=== PATIENT | male | born 2000 ===

== ENCOUNTER 2024-03-16 08:59 | Outpatient (AMB) | payer OTHER, SELFPAY ==
--- NOTE | 2024-03-16 09:10 | MHC.OFFWIV ---
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 Intake Note: Pt is a/o x 3 no sob/debbie noted. 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 Pt has less than dime sized puncture wound to posterior chin. Pt denies any pain/disc. Small amount of blood noted. Pt is putting pressure on the area. Color pink warm and dry. Speaks in full sentences. Josefina Hernnadez RN. Allergies amoxicillin Adverse Reaction (Mild, Verified 03/16/24 11:17) Rash [facility] Social History Patient Tobacco Use Status: Never used Tobacco Physical Exam Vital Signs: Last Vital Signs Pulse 93 03/16/24 09:25 BP 116/70 03/16/24 09:25 Pulse Ox 98 03/16/24 09:54 Oxygen Delivery Method Room Air 03/16/24 09:25 BMI result Body Mass Index 23.6 Office Procedures Laceration Repair Procedure Location: chin EMLA: 2% Lidocaine Text: After discussion of risk and benefits, verbal informed consent was obtained. The area was cleaned, prepped, and draped using sterile technique. The wound was irrigated using saline and betadine. Wound edges were approximated and closed using 5.0 monosof and 3 interrupted sutures. Standard wound dressing was applied. Wound care instructions were given. The patient tolerated the procedure well. The patient was instructed to return for increased redness or red streaking, pain, swelling, pus, fevers, chills, or any other signs or symptoms of infection or worsening. Patient was instructed to return for suture removal in 7-10 days. Assessment & Plan Assessment & Plan Medications: New cefuroxime axetil 500 mg PO BID 10 tabs 0RF 5 days Coding
--- NOTE | 2024-03-16 09:20 | MHC.OFFWIV ---
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 Intake Note: Patient here for laceration under chin while at work. 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 HPI Details This note is constructed using voice recognition software. While every effort has been made to ensure accuracy, forming department supervisor errors may have been included. The patient is a 23 year old male who presents to the clinic today with laceration to his chin occurring this morning at work. He had a high pressure object discharge and appropriately coming back striking him in the chin. He denies dyspnea, jaw pain, headache, dizziness. He does report that he gets lightheaded when he gets lab draws, so requested to have his mother present. [facility] Social History Patient Tobacco Use Status: Never used Tobacco Review of Systems Const All systems reviewed & are unremarkable except as noted in HPI and below Physical Exam Vital Signs: Last Vital Signs Pulse 93 03/16/24 09:25 BP 116/70 03/16/24 09:25 Pulse Ox 98 03/16/24 09:54 Oxygen Delivery Method Room Air 03/16/24 09:25 BMI result Body Mass Index 23.6 Const General: cooperative, healthy appearing, comfortable, no acute distress and alert Orientation/consciousness: patient oriented x3 Limitations: no limitations HEENT Head: Yes normal to inspection and Yes normocephalic General nose exam: Normal external nose present Face and sinus: Yes normal facial exam and Yes sinuses nontender Mouth: Normal oral and palatal mucosa present and tongue normal Teeth and gingiva: dentition normal Throat: Yes posterior oropharynx normal Eyes General: appearance normal, both eyes and all related structures Neck Neck: Yes normal visual inspection and Yes full ROM Resp Effort & Inspection: normal respiratory effort and able to speak in complete sentences Auscultation: clear to auscultation bilaterally Cardio Jugular venous distension: no JVD Palpation: normal PMI Rate: regular rate Heart sounds: S1 normal heart sound present, S2 normal heart sound present, no click, no gallops, no murmurs and no rubs Skin Other: flap laceration to mid chin with flap pointing forward measuring 1.5cm. General skin exam: no rashes or lesions noted, elasticity normal and turgor normal Neuro General: patient oriented x3 Cranial nerves: Yes CN's II-XII intact bilaterally Psych Appearance: grossly normal Mental Status: mental status grossly normal Speech and movement: Normal speech and movement present Affect: normal affect Office Procedures Laceration Repair Procedure Location: chin EMLA: 2% Lidocaine Text: After discussion of risk and benefits, verbal informed consent was obtained. The area was cleaned, prepped, and draped using sterile technique. The wound was irrigated using saline and betadine. Wound edges were approximated and closed using 5.0 monosof and 3 interrupted sutures. Standard wound dressing was applied. Wound care instructions were given. The patient tolerated the procedure well. The patient was instructed to return for increased redness or red streaking, pain, swelling, pus, fevers, chills, or any other signs or symptoms of infection or worsening. Patient was instructed to return for suture removal in 7-10 days. Assessment & Plan Assessment & Plan (1) Simple laceration of chin: Code(s): S01.81XA - Laceration without foreign body of other part of head, initial encounter Plan: Patient's mother present for procedure. Laceration repaired in office with 3 interrupted sutures, please see procedure above, patient was visibly nervous throughout but tolerated procedure well. No concern for TBI based on nature of injury and examination today. Advised suture removal in 7-10 days. Plan See above for full details and plan. Medications: New cefuroxime axetil 500 mg PO BID 5 days 10 tabs 0RF Coding Level of Care Code Est Pt Level 4 (50264) Diagnoses Simple laceration of chin S01.81XA Time Spent (min) 40
[2024-03-16 09:25] VITALS: BP 116/70; PULSE 93; O2SAT 92; BMI 23.6
[2024-03-16 09:54] VITALS: O2SAT 98
== END 2024-03-16 13:44 | disposition home or self-care (01) ==
PROVIDERS: Visit Provider Registered Nurse
DX: S01.81XA Laceration without foreign body of other part of head, initial encounter (principal); Z04.2 Encounter for examination and observation following work accident

== ENCOUNTER → 2024-03-16 08:59 | Outpatient (BNVA) | payer OTHER, SELFPAY | DX: S01.81XA Laceration without foreign body of other part of head, initial encounter (principal); W20.8XXA Other cause of strike by thrown, projected or falling object, initial encounter; Y93.9 Activity, unspecified; Y92.9 Unspecified place or not applicable; Y99.0 Civilian activity done for income or pay | CPT/HCPCS: 12011; 99212 ==

== ENCOUNTER 2024-03-24 13:22 | Outpatient (AMB) | payer OTHER, SELFPAY ==
--- NOTE | 2024-03-24 14:29 | MHC.OFFWIV ---
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 Patient Tobacco Use Status: Never used Tobacco Allergies amoxicillin Adverse Reaction (Mild, Verified 03/24/24 14:31) Rash Do you need a note to return to daycare/school/sports/work: Yes HPI HPI Comments History of Present Illness Details This is a 23-year-old male who presented to the walk-in clinic for suture removal. Patient had 3 sutures placed to his chin on 03/16/2024. Patient denies any drainage or surrounding erythema. PFSH Social History Patient Tobacco Use Status: Never used Tobacco Review of Systems Const All systems reviewed & are unremarkable except as noted in HPI and below Reports no additional complaints Eyes Reports no additional complaints ENT Reports no additional complaints Card Reports no additional complaints Resp Reports no additional complaints GI Reports no additional complaints Reports no additional complaints Musc Reports no additional complaints Skin/Breast Reports system reviewed and no additional complaints, except as documented Neuro Reports no additional complaints Psych Reports no additional complaints Endo Reports no additional complaints Mark/Lymph Reports no additional complaints Aller/Immun Reports no additional complaints Physical Exam Vital Signs: Last Vital Signs Pulse 71 03/24/24 14:31 BP 110/76 03/24/24 14:31 Pulse Ox 98 03/24/24 14:31 Oxygen Delivery Method Room Air 03/24/24 14:31 BMI result Body Mass Index 23.6 Const Other: Vital signs reviewed. Constitutional: Non-toxic appearing. No acute distress. Well-developed and well-nourished. HEENT: Normocephalic and atraumatic. Skin: Warm and dry. There is a well-healed laceration to the chin with [address] Neck: Full and painless range of motion. Cardio: Regular rate. Pulmonary: No respiratory distress. No accessory muscle usage. Gastrointestinal: Soft, nontender, and nondistended in all 4 quadrants. Musculoskeletal: Normal range of motion in joints throughout the body. No deformity or other signs of injury. Neuro: Alert and oriented x4. Cranial nerves 2-12 grossly intact. No focal deficits appreciated. Psych: Normal mood and affect. Assessment & Plan Assessment & Plan (1) Visit for suture removal: Code(s): Z48.02 - Encounter for removal of sutures Plan: This is a 23 year male who presented to the walk-in clinic for suture removal. He had 3 sutures placed to his chin on 03/16/2024. All 3 sutures were removed from the patient's chin in their entirety. The laceration appears well healed without any surrounding erythema or drainage. Patient was advised to keep the area clean and dry. Coding Level of Care Code Est Pt Level 3 (55832) Diagnoses Visit for suture removal Z48.02
[2024-03-24 14:31] VITALS: BP 110/76; PULSE 71; O2SAT 98; BMI 23.6
== END 2024-03-24 15:24 | disposition home or self-care (01) ==
PROVIDERS: Visit Provider Physician Assistant Medical
DX: S01.81XD Laceration without foreign body of other part of head, subsequent encounter (principal); Z48.02 Encounter for removal of sutures

== ENCOUNTER → 2024-03-24 13:22 | Outpatient (BNVA) | payer OTHER, SELFPAY | PROVIDERS: Visit Provider Physician Assistant Medical | DX: S01.81XD Laceration without foreign body of other part of head, subsequent encounter (principal); X58.XXXD Exposure to other specified factors, subsequent encounter | CPT/HCPCS: 99212 ==